=== PATIENT | female | born 1955 | race Caucasian/White ===

== ENCOUNTER 2024-11-17 12:48 | Outpatient (RCR) | payer MEDICARE, OTHER, SELFPAY ==
[2024-11-17 13:01] VITALS: BP 139/71
[2024-11-17] MEDS: RECLAST 100 IV (13:19)
== END 2024-11-18 10:42 | disposition home or self-care (01) ==
LOC: OID 12:48
PROVIDERS: ATTENDING PHYSICIAN Internal Medicine Endocrinology, Diabetes & Metabolism; FAMILY PHYSICIAN Family Medicine
DX: M81.0 Age-related osteoporosis without current pathological fracture (principal)
CPT/HCPCS: 96365; J3489